=== PATIENT | female | born 1990 | race African-American/Black ===

== ENCOUNTER 2024-08-03 10:23 | Observation (INO) | payer OTHER ==
[2024-08-03] MEDS ORDERED: LORazepam 2 MG/ML INJ IV PRN (10:48)
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
[2024-08-03] MEDS: SODIUM CHLORIDE 0.9% 1,000 ML IV STA (11:06)
[2024-08-03] MEDS: SODIUM CHLORIDE 0.9% 500 ML 500 ML IV STA (11:07)
[2024-08-03] MEDS: LORazepam 2 MG/ML INJ IV PRN (11:09)
[2024-08-03] MEDS: ONDANSETRON 4 MG/2 ML VIAL IVP STA (11:09)
[2024-08-03 11:11] LABS: Appearance,Urine Clear (Clear); Bilirubin,Urine Negative (Negative); Blood,Urine Trace (Negative); Color,Urine Colorless; Glucose,Urine (UA) Negative (Negative); Hyaline Casts,Urine 3 /lpf (0-2); Ketones,Urine Negative (Negative); Leukocyte Esterase,Urine Negative (Negative); Mucus,Urine Rare /hpf; Nitrite,Urine Negative (Negative); Protein,Urine 2+ (Negative); RBC,Urine <1 /hpf (0-5); Specific Gravity,Urine 1.008 (1.001-1.035); Squamous Epithelial Cell,Urine 1 /hpf (0-4); Urobilinogen,Urine <2.0 mg/dL (<2.0); WBC,Urine <1 /hpf (0-5)
[2024-08-03] MEDS: THIAMINE 100 MG/ML 2 ML VIAL IM STA (11:11)
[2024-08-03 11:14] LABS: Anisocytosis Moderate; Basophils % (A) 0 %; Eosinophils # (A) 0.1 k/uL (0-0.7); Eosinophils % (A) 2 %; HCT 31.1 % (34.0-46.0); HGB 9.7 gm/dL (11.4-16.0); Hypochromasia Slight; Lymphocytes # (A) 1.3 k/uL (1.0-4.8); Lymphocytes % (A) 22 %; MCH 26.4 pg (25.0-35.0); MCHC 31.3 g/dL (31.0-37.0); MCV 84.4 fL (80.0-100.0); Mean Platelet Volume 7.3; Microcytosis Slight; Monocytes # (A) 0.4 k/uL (0-1.0); Monocytes % (A) 7 %; Neutrophils # (A) 3.9 k/uL (1.3-7.7); Neutrophils % (A) 65 %; Platelet Count 246 k/uL (150-450); RBC 3.69 m/uL (3.80-5.40); RDW 20.8 % (11.5-15.5); WBC 5.9 k/uL (3.8-10.6)
[2024-08-03 11:27] LABS: Amphetamine Screen,Urine Not Detected (NotDetected); Barbiturate Screen,Urine Not Detected (NotDetected); Benzodiazepines Screen,Urine Detected (NotDetected); Cocaine Screen,Urine Detected (NotDetected); Methadone Screen, Urine Not Detected (NotDetected); Opiate Screen,Urine Not Detected (NotDetected); Oxycodone Screen, Urine Not Detected (NotDetected); Phencyclidine Screen,Urine Not Detected (NotDetected); Tricyclic Antidepressant,Urine Not Detected (NotDetected); Urn Cannabinoid Scrn Not Detected (NotDetected)
[2024-08-03 11:29] LABS: ALT 65 U/L (4-34); AST 174 U/L (14-36); African American GFR (CKD) >90 (>60 ml/min/1.73 sqM); Albumin 4.8 g/dL (3.5-5.0); Alkaline Phosphatase 95 U/L (38-126); Amylase 45 U/L (30-110); Anion Gap 17 mmol/L; Blood Urea Nitrogen 8 mg/dL (7-17); Calcium 8.9 mg/dL (8.4-10.2); Carbon Dioxide 26 mmol/L (22-30); Chloride 100 mmol/L (98-107); Glucose 80 mg/dL (74-99); Lipase 190 U/L (23-300); Magnesium 1.5 mg/dL (1.6-2.3); Non-African American GFR(CKD) >90 (>60 ml/min/1.73 sqM); Potassium 4.1 mmol/L (3.5-5.1); Sodium 143 mmol/L (137-145); Total Bilirubin 0.6 mg/dL (0.2-1.3); Total Protein 8.6 g/dL (6.3-8.2)
[2024-08-03 11:51] LABS: Alcohol 427 mg/dL
[2024-08-03] MEDS ORDERED: NALOXONE 0.4 MG/ML 1 ML VIAL IV PRN (12:06)
[2024-08-03] MEDS ORDERED: Magnesium Replacement Protocol 1 EACH MISC MISCELLANE PRN (13:06)
[2024-08-03] MEDS: MAGNESIUM SULFATE-D5W PMX 1 GM in DEXTROSE/WATER 1 100ML.BAG IVPB SCH (13:24)
[2024-08-03] MEDS ORDERED: HALOPERIDOL LACTATE 5 MG/ML 1 ML VIAL IM PRN (15:55)
[2024-08-03] MEDS: SODIUM CHLORIDE 0.9% 1,000 ML IV SCH (16:37)
[2024-08-03] MEDS: IBUPROFEN 400 MG TAB PO PRN (17:03)
--- NOTE | 2024-08-03 19:51 | HP ---
HISTORY AND PHYSICAL CHIEF COMPLAINT: Change in mental status and alcohol intoxication. HISTORY OF PRESENT ILLNESS: This is a 34-year-old woman with a past medical history of borderline personality disorder and pancreatitis, admitted with alcohol intoxication. The patient is confused and lethargic at this time. The evaluation showed alcohol level of 427. There is no history of any fever, rigors, or chills at this time. PAST MEDICAL HISTORY: Borderline personality disorder, pancreatitis, PTSD. Rest of the history and rest of the chart is also reviewed. HOME MEDICATIONS: None. ALLERGIES: None. FAMILY HISTORY: Could not be taken. SOCIAL HISTORY: Could not be taken. REVIEW OF SYSTEMS: Could not be taken. The patient is stuporous. The patient apparently had cocaine and prescriptive drug abuse also in the past. PHYSICAL EXAMINATION: VITAL SIGNS: Pulse is 113, blood pressure 127/86, respirations 20. HEENT: Conjunctivae normal. NECK: No JVD. CARDIOVASCULAR: S1, S2. RESPIRATIONS: Breath sounds diminished at the bases. No rhonchi. No crackles. ABDOMEN: Soft. LEGS: No edema. NERVOUS SYSTEM: Moves all 4 limbs. Detailed exam not possible. LABORATORY DATA: Hemoglobin 9.2. Rest of the labs are noted. ASSESSMENT: 1. Acute alcohol intoxication. 2. Hypomagnesemia. 3. History of borderline personality disorder as well as anxiety, bipolar depression, posttraumatic stress disorder. 4. History of cocaine and prescription drug abuse. RECOMMENDATIONS: This is a 34-year-old woman, who presented with multiple complex medical issues, we will monitor the patient closely. Initiate CIWA protocol. Closely monitor. Symptomatic treatment. IV fluids. Prognosis guarded because of multiple complex medical issues. Further recommendations to follow. See orders for further details. MMODL / IJN: [id number] /
[2024-08-03] MEDS: ONDANSETRON 4 MG/2 ML VIAL IVP PRN (21:20)
[2024-08-04] MEDS: LORazepam 2 MG/ML INJ IV PRN (02:32)
[2024-08-04 08:37] LABS: Basophils # (A) 0.02 X 10*3/uL (0.00-0.10); Basophils % (A) 0.5 %; Eosinophils # (A) 0.03 X 10*3/uL (0.04-0.35); Eosinophils % (A) 0.8 %; HCT 26.1 % (37.2-46.3); HGB 8.7 g/dL (12.0-15.0); Lymphocytes # (A) 0.69 X 10*3/uL (0.90-5.00); Lymphocytes % (A) 18.1 %; MCH 27.5 pg (27.0-32.0); MCHC 33.3 g/dL (32.0-37.0); MCV 82.6 FL (80.0-97.0); Mean Platelet Volume 9.3 FL (9.5-12.2); Monocytes # (A) 0.69 X 10*3/uL (0.20-1.00); Monocytes % (A) 18.1 %; NRBC Per 100 WBC 0.02 X 10*3/uL (0.00-0.01); Neutrophils # (A) 2.36 X 10*3/uL (1.80-7.70); Platelet Count 171 X 10*3/uL (140-440); RBC 3.16 X 10*6/uL (4.10-5.20); RDW 21.3 % (11.5-14.5); WBC 3.81 X 10*3/uL (4.50-10.00)
[2024-08-04 08:58] LABS: BUN/Creat Ratio 10.14 Ratio (12.00-20.00); Blood Urea Nitrogen 7.1 mg/dL (9.0-27.0); Carbon Dioxide 24.2 mmol/L (21.6-31.8); Chloride 97 mmol/L (96-109); Glucose 92 mg/dL (70-110); Magnesium 1.5 mg/dL (1.5-2.4); Sodium 134 mmol/L (135-145)
[2024-08-04] MEDS ORDERED: Magnesium Replacement Protocol 1 EACH MISC MISCELLANE PRN (09:30)
[2024-08-04] MEDS: MAGNESIUM SULFATE-D5W PMX 1 GM in DEXTROSE/WATER 1 100ML.BAG IVPB SCH (11:42)
[2024-08-04] MEDS ORDERED: ONDANSETRON 4 MG/2 ML VIAL IVP PRN (14:03)
[2024-08-04] MEDS: MULTIVITAMINS, THERA 1 EACH TAB PO SCH (14:11)
[2024-08-04] MEDS: FOLIC ACID 1 MG TAB PO SCH (14:11)
[2024-08-04] MEDS: FERROUS SULFATE 325 MG TAB PO SCH (14:11)
[2024-08-04] MEDS: THIAMINE 100 MG TAB PO SCH (14:11)
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
[2024-08-04] MEDS: traZODone HCL 50 MG TAB PO SCH (20:18)
[2024-08-04] MEDS: PANTOPRAZOLE 40 MG/10 ML VIAL IVP SCH (20:18)
--- NOTE | 2024-08-05 09:05 | P.PN ---
Subjective Progress Note Date: 08/04/24 This is a 34-year-old female who was recently admitted after attempting to check into [facility] rehab although found to be intoxicated and an alcohol level of 427. Patient also with suicidal ideations and increased depression awaiting psychiatry consult. Patient continues to have nausea and unsteady gait reports not much of an appetite today. Will continue CIWA protocol and await psychiatric recommendations. Patient is afebrile denies any chest pain or shortness of breath. Encouraged increase activity as tolerated. Patient does have a sitter at the bedside until evaluated by psychiatry. Review of systems: Constitutional: reports of fatigue, no fevers, or chills Cardiovascular: No reports of chest pain or palpitations Respiratory: No reports of shortness of breath or cough GI: reports of nausea, no reports of vomiting, : No reports of dysuria or retention Neurovascular: reports of generalized weakness, shaky feeling still All medications have been reviewed PHYSICAL EXAMINATION: GENERAL: The patient is alert and oriented x4, Well developed, well nourished. HEENT: Pupils are round and equally reacting to light. EOMI. no scleral icterus. No conjunctival pallor. Normocephalic, atraumatic. No pharyngeal erythema. No thyromegaly. CARDIOVASCULAR: S1 and S2 muffled PULMONARY: diminished breath sounds bilaterally with no wheezing or rhonchi noted. ABDOMEN: soft. Nontender on exam. non-distended, normoactive bowel sounds. No palpable organomegaly. MUSCULOSKELETAL: No joint swelling or deformity. EXTREMITIES: No cyanosis, clubbing, or pedal edema. NEUROLOGICAL: Gross neurological examination did not reveal any focal deficits. Diffuse weakness SKIN: No rashes. Assessment: Acute alcohol intoxication Hypomagnesemia History of borderline personality disorder as well as anxiety, bipolar depression, PTSD History of cocaine and prescription drug abuse Continued ongoing nicotine dependence GI prophylaxis DVT prophylaxis Full code Plan: Recommend to continue with current medications and management maintained on CIWA protocol. Patient evaluated by psychiatry and does not meet inpatient criteria recommending adjusting medications and outpatient follow-up with [facility] Patient is not suicidal and denies wanting to harm herself or others. Okay to discontinue suicide sitter Follow-up on liver functions and monitor trend Encouraged increase activity as tolerated Continue supportive care with antinausea medications and gentle hydration Possible discharge planning to [facility] in 24 hours Overall prognosis is guarded. The impression and plan of care has been dictated by Yvette Palacios, nurse practitioner as directed. Dr. Tom MD I have performed a history and examination and MDM of this patient, discussed the same with the dictator, and agree with the dictator's assessment and plan as written ,documented as a scribe. Based on total visit time, I have performed more than 50% of the visit. Any additional findings or plans will be noted. Objective - Vital Signs Vital signs: Vital Signs Temp 97.6 F 08/05/24 07:35 Pulse 87 08/05/24 07:35 Resp 18 08/05/24 07:35 BP 144/97 08/05/24 07:35 Pulse Ox 98 08/05/24 07:35 FiO2 Intake & Output 08/04/24 08/05/24 08/05/24 18:59 06:59 18:59 Intake Total 540 Balance 540 Intake: Oral 540 Other: Voiding Method Toilet Toilet # Voids 1 3 - Labs CBC & Chem 7: 08/04/24 05:32 08/04/24 05:32
[2024-08-05 12:39] VITALS: BP 143/101; PULSE 96; RESP 16; TEMP 97.9
[2024-08-05 13:52] LABS: ALT 45 U/L (8-44); AST 92 U/L (13-35); Albumin 3.9 g/dL (3.8-4.9); Albumin/Globulin Ratio 1.22 Ratio (1.60-3.17); Alkaline Phosphatase 79 U/L (41-126); BUN/Creat Ratio <4.38 Ratio (12.00-20.00); Blood Urea Nitrogen <3.5 mg/dL (9.0-27.0); Calcium 8.5 mg/dL (8.7-10.3); Carbon Dioxide 21.2 mmol/L (21.6-31.8); Chloride 101 mmol/L (96-109); Globulin 3.2 g/dL (1.6-3.3); Glucose 95 mg/dL (70-110); Potassium 3.9 mmol/L (3.5-5.5); Sodium 136 mmol/L (135-145); Total Bilirubin 0.6 mg/dL (0.3-1.2); Total Protein 7.1 g/dL (6.2-8.2)
--- NOTE | 2024-08-06 10:45 | P.DS ---
Providers Date of admission: 08/03/24 12:23 Expected date of discharge: 08/05/24 Attending physician: Fortino De Oliveira MD Consults: 08/04/24 10:28 Consult Physician Urgent Consulting Provider: Psychiatry - [facility] Psychiatry Consult Reason/Comments: pt petitioned for poor decisions and ETOH Do you want consulting provider notified?: Yes Primary care physician: Physician Nonstaff Hospital Course: Final diagnosis Acute alcohol intoxication Hypomagnesemia, improved History of borderline personality disorder as well as anxiety, bipolar depression, PTSD History of cocaine and prescription drug abuse Continued ongoing nicotine dependence GI prophylaxis DVT prophylaxis Full code Discharge disposition Patient is being discharged in a stable condition with guarded prognosis to [place] for inpatient rehab. Patient will follow-up with her primary care provider Dr. Jessica in [place] in the outpatient setting upon discharge. Patient is to continue with current medications and outpatient follow-up with mental health as scheduled. Patient will be going to [place] rehab. Total time taken is greater than 35 minutes. Hospital course This is a 34-year-old female who was recently admitted with acute alcohol intoxication along with electrolyte abnormalities including low magnesium being monitored maintained on CIWA protocol. Patient also with increasing depression evaluated by psychiatry and not meeting inpatient criteria with medication adjustments made recommending outpatient follow-up with community mental health as well as counseling and psychiatry. Patient clinically stable and will be discharged and patient to follow-up with [place] rehab for inpatient alcohol rehab. Please refer to other consultation notes for further HPI. Currently no reports of chest pain, shortness of breath, or palpitations. Patient is afebrile. No reports of nausea or vomiting and patient is tolerating diet. Patient will be discharged today. Guarded prognosis and high risk for readmissions given alcohol abuse Physical exam: Gen: This is a 34-year-old female who is awake, alert and oriented x 3, well- developed, well-nourished HEENT: Head is atraumatic, normocephalic. Pupils equal, round. Sclerae is anicteric. NECK: Supple. No JVD. No lymphadenopathy. No thyromegaly. LUNGS: Diminished breath sounds bilaterally otherwise clear to auscultation. No wheezes or rhonchi. No intercostal retractions. HEART: S1, S2 are muffled ABDOMEN: Soft. Bowel sounds are present. No masses. No tenderness. EXTREMITIES: No pedal edema. No calf tenderness. NEUROLOGICAL: Patient is awake, alert and oriented x3. Cranial nerves 2 through 12 are grossly intact. Please refer to medication reconciliation sheet for a list of medications. The impression and plan of care has been dictated by Yvette Palacios, Nurse Practitioner as directed. Dr. Tom MD I have performed a history and examination and MDM of this patient, discussed the same with the dictator, and agree with the dictator's assessment and plan as written ,documented as a scribe. Based on total visit time, I have performed more than 50% of the visit. Patient Condition at Discharge: Stable Plan - Discharge Summary Discharge Rx Participant: Yes New Discharge Prescriptions: New Ibuprofen [Motrin] 400 mg PO Q6HR PRN #10 tab PRN Reason: Mild Pain Or Fever > 100.5 Multivitamins, Thera [Multivitamin (formulary)] 1 each PO DAILY@1200 #30 tab Thiamine [Vitamin B-1] 100 mg PO DAILY@1200 #30 tab traZODone HCL [Desyrel] 50 mg PO HS #30 tab Folic Acid 1 mg PO DAILY@1200 #30 tab Ferrous Sulfate [Iron (65 MG Elemental)] 325 mg PO DAILY #30 tab chlordiazePOXIDE HCl [Librium] 20 mg PO TID #9 cap Discharge Medication List Ferrous Sulfate [Iron (65 MG Elemental)] 325 mg PO DAILY #30 tab 08/05/24 [Rx] Folic Acid 1 mg PO DAILY@1200 #30 tab 08/05/24 [Rx] Ibuprofen [Motrin] 400 mg PO Q6HR PRN #10 tab 08/05/24 [Rx] Multivitamins, Thera [Multivitamin (formulary)] 1 each PO DAILY@1200 #30 tab 08/05/24 [Rx] Thiamine [Vitamin B-1] 100 mg PO DAILY@1200 #30 tab 08/05/24 [Rx] chlordiazePOXIDE HCl [Librium] 20 mg PO TID #9 cap 08/05/24 [Rx] traZODone HCL [Desyrel] 50 mg PO HS #30 tab 08/05/24 [Rx] Follow up Appointment(s)/Referral(s): Nonstaff,Physician [Primary Care Provider] - 1-2 days Activity/Diet/Wound Care/Special Instructions: Activity limited until follow-up Strongly recommend inpatient alcohol rehab at [place] Follow-up with primary care provider on discharge Continue taking medications as prescribed Avoid alcohol intake, use, and exposure Discharge/Stand Alone Forms: AA Meetings [facility] Discharge Disposition: HOME SELF-CARE
== END 2024-08-05 16:04 | disposition home or self-care (01) ==
LOC: EC 10:23 → 5NMEDONC 12:23
PROVIDERS: ADMIT Internal Medicine; ATTEND Internal Medicine
DX: F10.229 Alcohol dependence with intoxication, unspecified (principal); F10.239 Alcohol dependence with withdrawal, unspecified; Y90.8 Blood alcohol level of 240 mg/100 ml or more; E83.42 Hypomagnesemia; F60.3 Borderline personality disorder; F14.10 Cocaine abuse, uncomplicated; F31.9 Bipolar disorder, unspecified; F19.94 Other psychoactive substance use, unspecified with psychoactive substance-induced mood disorder; F43.10 Post-traumatic stress disorder, unspecified; R45.851 Suicidal ideations; R41.82 Altered mental status, unspecified; K85.90 Acute pancreatitis without necrosis or infection, unspecified; R11.0 Nausea; R44.3 Hallucinations, unspecified; F41.9 Anxiety disorder, unspecified; F17.200 Nicotine dependence, unspecified, uncomplicated; R44.1 Visual hallucinations; R20.2 Paresthesia of skin; Z91.410 Personal history of adult physical and sexual abuse; Z56.0 Unemployment, unspecified; Z63.5 Disruption of family by separation and divorce
CPT/HCPCS: 36415; 80048; 80053; 80306; 80320; 81001; 81025; 82075; 82150; 83690; 83735; 85025; 93005